=== PATIENT | male | born 1970 | race Two or more races ===

== ENCOUNTER → 2024-10-16 | Outpatient (CLI) | payer BC, SELFPAY ==
--- NOTE | 2024-10-16 10:50 | XR_ITS ---
Examination: Testicular sonography complete TECHNIQUE: Grayscale sonographic images testes, assessment arterial inflow venous outflow Doppler spectral analysis carful analysis Date and time: October 16, 2024 11:04 AM INDICATIONS: Scrotal pain 6 months to a year FINDINGS: Right testis 4.9 cm epididymis 16mm Scrotal wall 0.5 cm Arterial flow testicle. No testicular mass Left testis 5.5 cm epididymis 16mm 6 x 5 mm left epididymal cyst Arterial flow testicle. No testicular mass Scrotal wall 0.5 cm IMPRESSION: No testicular torsion or testicular mass Small benign left epididymal cyst Mild thickening of the scrotal wall bilaterally
[2024-10-16 11:04] LABS: Collection Type, Urine Clean Catch; Squamous Epithelial Cell,Urine 0 /hpf (0-5)
[2024-10-16 11:25] LABS: Basophils # (Auto) 0.1 Thou/mm3 (0.0-0.2); Basophils % (Auto) 1 % (0-2.5); Eosinophils # (Auto) 0.1 Thou/mm3 (0.0-0.5); Eosinophils % (Auto) 1 % (0-10); Hematocrit 42.6 % (41.0-53.0); Hemoglobin 15.6 g/dL (13.5-16.0); Immature Granulocytes % (Auto) 1 % (0-0); Immature Granulocytes Auto 0.04 Thou/mm3 (0.00-0.00); Lymphocytes # (Auto) 3.1 Thou/mm3 (1.0-4.8); Lymphocytes % (Auto) 39 % (10-50); Mean Corpuscular HGB Conc 36.6 g/dl (31.0-37.0); Mean Corpuscular Volume 79 fL (80-100); Monocytes # (Auto) 0.5 Thou/mm3 (0.0-0.8); Monocytes % (Auto) 6 % (0-12); Neutrophils # (Auto) 4.4 Thou/mm3 (1.8-7.7); Neutrophils % (Auto) 54 % (37-80); Nucleated Red Blood Cell % 0 /100 WBC (0); Platelet Count 296 Thou/mm3 (140-440); RDW Standard Deviation 37.7 fL (35.1-43.9); Red Blood Count 5.38 Miln/mm3 (4.50-5.90); White Blood Count 8.1 Thou/mm3 (3.8-10.6)
[2024-10-16 11:34] LABS: Glucose Estimated Average 143 mg/dL (80-131); Hemoglobin A1C 6.6 % Hgb (4.8-6.0)
[2024-10-16 11:39] LABS: Vitamin B12 530 pg/mL (211-911); Vitamin D 25 Hydroxy Total 8.5 ng/mL (7.3-40.2)
[2024-10-16 11:41] LABS: Alanine Aminotransferase 31 U/L (10-49); Albumin, Serum 4.7 gm/dL (3.5-5.0); Albumin/Globulin Ratio 1.9 (1.2-2.2); Alkaline Phosphatase 65 U/L (46-116); Anion Gap 8 (7-16); Aspartate Amino Transferase 30 U/L (0-34); BUN/Creatinine Ratio 11 Ratio (12-20); Bilirubin,Total 1.1 mg/dL (0.3-1.2); Blood Urea Nitrogen 12 mg/dL (9-23); Calcium 9.6 mg/dL (8.3-10.6); Calcium (Corrected) 9.6 mg/dL (8.5-10.1); Carbon Dioxide 31.7 mMol/L (20.0-31.0); Cardiac Risk Estimate 5.4 RATIO (4.0-6.7); Chloride 99 mMol/L (98-107); Cholesterol 177 mg/dL (132-200); Creatinine (Component) 1.1 mg/dL (0.6-1.3); Globulin 2.5 gm/dL (2.3-3.5); Glucose 167 mg/dL (74-106); HDL Cholesterol 33 mg/dL (40-60); LDL Cholesterol,Calculated 102 mg/dL (0-130); Osmolality,Calculated 281 (275-295); Potassium 3.9 mMol/L (3.4-5.1); Sodium 139 mMol/L (136-145); Thyroid Stimulating Hormone 1.69 uIU/mL (0.55-4.78); Total Protein 7.2 gm/dL (5.7-8.2); Triglycerides 208 mg/dL (30-150); Uric Acid 5.1 mg/dL (3.7-9.2); eGFR > 60 See Note
[2024-10-16 12:35] LABS: Bilirubin,Urine Negative (Negative); Blood,Urine Negative (Negative); Clarity,Urine Clear (Clear/Hazy); Color,Urine Colorless (Lt Yel-Yel); Glucose, Urine Trace (Negative); Ketones,Urine Negative (Negative); Leukocyte Esterase,Urine Negative (Negative); Nitrite,Urine Negative (Negative); Protein,Urine Negative (Neg - Trace); RBC,Urine 3 /hpf (0-3); Specific Gravity,Urine 1.007 (1.001-1.035); Urobilinogen,Urine Negative mg/dL (0.0-1.0); WBC,Urine 1 /hpf (0-5)
== END | disposition home or self-care (01) ==
LOC: CDIM 10:26
PROVIDERS: PCP Internal Medicine; Referring Provider Internal Medicine; Visit Provider Internal Medicine
DX: N50.3 Cyst of epididymis (principal); Z00.00 Encounter for general adult medical examination without abnormal findings
CPT/HCPCS: 36415; 76870; 80053; 80061; 81001; 82306; 82607; 83036; 84443; 84550; 85025

== ENCOUNTER 2024-12-11 15:54 | Observation (INO) | payer BC, SELFPAY ==
[2024-12-11 16:11] VITALS: BP 141/85; PULSE 112; RESP 20; TEMP 37.3; O2SAT 98; BMI 21.1
--- NOTE | 2024-12-11 16:59 | XR_ITS ---
Examination: CT abdomen and pelvis without contrast. Coronal 3-D reconstructions. Sagittal 2-D reconstructions. Date and time of exam:December 11, 2024 1819 hours INDICATIONS: Flank pain and abdominal pain diarrhea beginning 3 days ago CTDI: vol (mGy): 10. DLP: (mGycm): 709. Technique: Axial images of the abdomen have been obtained, 3 mm slice thickness Intravenous contrast material has not been administered. Low dose protocols were performed. One or more of the following dose reduction techniques were used; automated exposure control, adjustment of the mA and/or KV according to patient size, use of iterative reconstruction technique. Findings: Diffuse fatty infiltration throughout the liver, 8 mm right lobe liver cyst No gallstones Spleen not enlarged No pancreatic or adrenal mass No renal or ureteral calculi, no hydronephrosis Aorta normal size Appendix is not visualized, no pericecal inflammatory change There is diffuse mild wall thickening and inflammatory change involving the entire colon No bowel obstruction No bladder mass No prostatomegaly Grade 1 spondylolisthesis L5 on S1 IMPRESSION: Diffuse nonspecific colitis pattern, differential would include Crohn's disease, ulcerative colitis
--- NOTE | 2024-12-11 16:59 | PD.EDRME ---
Rapid Medical Screening Exam E Arrival date/time: 12/11/24 15:54 54-year-old male with no known medical history presents to the emergency room with a chief complaint diarrhea, flank pain, weakness and fatigue x 3 days. Patient was sent over by his primary care provider. I have greeted and performed a focused initial assessment of this patient. A comprehensive ED assessment and evaluation of the patient, analysis of all test results, and completion of the medical decision making process will be conducted by additional ED providers. Chief Complaint: Nausea/Vomiting/Diarrhea Time Seen by Provider: 12/11/24 16:11 Vital signs: Vital Signs Temperature 99.1 F 12/11/24 16:11 Pulse Rate 112 H 12/11/24 16:11 Respiratory Rate 20 12/11/24 16:11 Blood Pressure 141/85 H 12/11/24 16:11 Pulse Oximetry (%) 98 12/11/24 16:11 Oxygen Delivery Method Room Air 12/11/24 16:11 Vital signs reviewed by provider: Yes
[2024-12-11 17:14] LABS: Basophils # (Auto) 0.1 Thou/mm3 (0.0-0.2); Basophils % (Auto) 0 % (0-2.5); Eosinophils # (Auto) 0.0 Thou/mm3 (0.0-0.5); Eosinophils % (Auto) 0 % (0-10); Hematocrit 47.5 % (41.0-53.0); Hemoglobin 17.4 g/dL (13.5-16.0); Immature Granulocytes Auto 0.07 Thou/mm3 (0.00-0.00); Lymphocytes # (Auto) 1.7 Thou/mm3 (1.0-4.8); Lymphocytes % (Auto) 10 % (10-50); Mean Corpuscular HGB Conc 36.6 g/dl (31.0-37.0); Mean Corpuscular Hemoglobin 29.2 pg (25.0-35.0); Mean Corpuscular Volume 80 fL (80-100); Monocytes # (Auto) 1.2 Thou/mm3 (0.0-0.8); Monocytes % (Auto) 7 % (0-12); Neutrophils # (Auto) 13.6 Thou/mm3 (1.8-7.7); Neutrophils % (Auto) 82 % (37-80); Nucleated Red Blood Cell # 0.00 Thou/mm3 (0.00-0.00); Nucleated Red Blood Cell % 0 /100 WBC (0); Platelet Count 284 Thou/mm3 (140-440); RDW Standard Deviation 35.6 fL (35.1-43.9); Red Blood Count 5.95 Miln/mm3 (4.50-5.90); White Blood Count 16.7 Thou/mm3 (3.8-10.6)
[2024-12-11 17:40] LABS: Alanine Aminotransferase 16 U/L (10-49); Albumin, Serum 5.0 gm/dL (3.5-5.0); Albumin/Globulin Ratio 1.6 (1.2-2.2); Alkaline Phosphatase 72 U/L (46-116); Anion Gap 12 (7-16); Aspartate Amino Transferase 24 U/L (0-34); BUN/Creatinine Ratio 8 Ratio (12-20); Bilirubin,Total 1.7 mg/dL (0.3-1.2); Blood Urea Nitrogen 9 mg/dL (9-23); Calcium 9.7 mg/dL (8.3-10.6); Calcium (Corrected) 9.7 mg/dL (8.5-10.1); Carbon Dioxide 28.7 mMol/L (20.0-31.0); Chloride 95 mMol/L (98-107); Creatinine (Component) 1.2 mg/dL (0.6-1.3); Estimated Creatinine Clearance 66.4 mL/min (>60); Globulin 3.2 gm/dL (2.3-3.5); Glucose 208 mg/dL (74-106); Lipase 30 U/L (12-53); Osmolality,Calculated 276 (275-295); Potassium 3.5 mMol/L (3.4-5.1); Sodium 136 mMol/L (136-145); Total Protein 8.2 gm/dL (5.7-8.2); eGFR > 60 See Note
[2024-12-11 19:50] LABS: Collection Type, Urine Clean Catch; Squamous Epithelial Cell,Urine 0 /hpf (0-5)
[2024-12-11 20:00] LABS: Bilirubin,Urine Negative (Negative); Blood,Urine Negative (Negative); Clarity,Urine Clear (Clear/Hazy); Color,Urine Yellow (Lt Yel-Yel); Culture Indicated,Urine Not Indicated; Glucose, Urine 2+ (Negative); Hyaline Casts,Urine 1 /hpf (0-1); Ketones,Urine 1+ (Negative); Leukocyte Esterase,Urine Negative (Negative); Nitrite,Urine Negative (Negative); PH,Urine 6.0 (5.0-7.0); Protein,Urine 1+ (Neg - Trace); RBC,Urine 1 /hpf (0-3); Specific Gravity,Urine 1.019 (1.001-1.035); Urobilinogen,Urine Negative mg/dL (0.0-1.0); WBC,Urine 6 /hpf (0-5)
--- NOTE | 2024-12-11 20:43 | PD.EDNV ---
Nausea/Vomit./Diarrhea-RME/HPI General Chief complaint: Nausea/Vomiting/Diarrhea Stated complaint: Diarrhea X 3 days, abd. pain, dry mouth Time Seen by Provider: 12/11/24 16:11 Arrival date/time: 12/11/24 15:54 RME / HPI RME / HPI Narrative: 12/11/24 15:54 54-year-old male with no known medical history presents to the emergency room with a chief complaint diarrhea, flank pain, weakness and fatigue x 3 days. Patient was sent over by his primary care provider. I have greeted and performed a focused initial assessment of this patient. A comprehensive ED assessment and evaluation of the patient, analysis of all test results, and completion of the medical decision making process will be conducted by additional ED providers. Dr. Dillon?s Main ED Evaluation: 54yo male presenting with ongoing foul, watery diarrhea 5-10 episodes daily for the last 3 days. He has associated nausea, but no emesis. He does have generalized abdominal pain described as cramping and notes a low-grade fever. Denies recent travel, restaurant-food exposure, or sick contacts. PMH includes glucose intolerance. PSH: no previous abdominal surgeries. Allergies to penicillin. Related Data Allergies Allergy/AdvReac Type Severity Reaction Status Date / Time Penicillins Allergy Unknown UNKNOWN Verified 12/11/24 15:58 Review of Systems Review of Systems Systems Reviewed: All systems reviewed, normal except as documented Past Medical History Social History SMOKING STATUS: Never smoker ED Exam Narrative Physical exam: GENERAL APPEARANCE: alert and oriented x 4, well-developed, well-nourished, nontoxic, complains of generalized abdominal pain, no acute distress VITALS: All vitals were reviewed and the pulse ox is 98% on room air, which is normal according to my interpretation. HEENT: Normocephalic, atraumatic; pupils equal, round, reactive to light; EOMI; mucous membranes pink, moist; oropharynx clear NECK: Supple LUNGS: CTABL; no wheezes, no rales, no rhonchi HEART: Mildly tachycardic, regular rhythm; normal S1, S2; no murmurs ABDOMEN: non distended; hypoactive BS; soft, generalized diffuse tenderness, no gross peritoneal findings BACK: no CVA tenderness EXTREMITIES: atraumatic; no edema NEUROLOGIC: awake; alert and oriented x4; cranial nerves II-XII grossly intact; no focal sensory or motor deficits PSYCHIATRIC: appropriate mood and affect SKIN: warm, dry, normal color; no rashes Course Quality Measures none Orders Category Date Time Status Bedside COVID-19 Antigen Test NOW Care 12/11/24 16:18 Active Bedside Influenza A&B Antigen Test NOW Care 12/11/24 16:[address] abdomen pelvis wo con Stat Exams 12/11/24 16:59 Completed CBC Stat Lab 12/11/24 16:58 Completed CMP [Comprehensive Metabolic Panel] Stat Lab 12/11/24 16:58 Completed Lipase Stat Lab 12/11/24 16:58 Completed UA, C/S IF [Urinalysis, C/S if Indicated] Stat Lab 12/11/24 19:45 Completed Levofloxacin/D5w 500 mg Ivpb [Levaquin Ivpb] Med 12/11/24 21:16 Active 500 mg in 100 ml IV X1 Midazolam Inj [Versed Inj] Med 12/11/24 21:20 Discontinued 2 mg IVP X1 ONE Morphine Inj Med 12/11/24 21:16 Discontinued 4 mg IVP X1 ONE metroNIDAZOLE/NS 500 MG IVPB [Flagyl 500 mg IV] Med 12/11/24 21:19 Active 500 mg in 100 ml IV X1 Vital Signs Vital signs: Vital Signs Temperature 99.1 F 12/11/24 16:11 Pulse Rate 112 H 12/11/24 16:11 Respiratory Rate 20 12/11/24 16:11 Blood Pressure 141/85 H 12/11/24 16:11 Pulse Oximetry (%) 98 12/11/24 16:11 Oxygen Delivery Method Room Air 12/11/24 16:11 Nausea/Vomiting/Diarrhea MDM Narrative MDM Narrative:: Scribe Attestation: 12/11/24 - Kanwal Resendez am scribing for and in the presence of Dr. Dillon. 54yo male presenting with ongoing foul, watery diarrhea 5-10 episodes daily for the last 3 days. He has associated nausea, but no emesis. He does have generalized abdominal pain described as cramping and notes a low-grade fever. Please see PE findings. Lab markers remarkable for elevated WBC count 16.37, hemoconcentration with Hgb 17.6, normal platelets, and left shift without bandemia. Chemistries show mildly elevated blood sugar of 208 without ketosis, normal lipase. UA shows evidence of concentration. Patient placed on quality assurance monitor chassis and IV was established. Patient hydrated to correct volume deficit and given IV narcotic analgesics/antiemetics with [id number] relief. Patient referred for CT abdomen pelvis, which demonstrated mild diffuse colitis. Empiric antibiotics initiated. Patient remained hemodynamically stable without signs of sepsis. Hospitalist consulted and agrees to admit the patient for bowel rest, IV antibiotic therapy, and pain control. Dx: acute colitis. Patient data External records reviewed:: [facility] previous records (Per chart review, patient has no previous ED visits or admissions to this facility.) Clinical information provided by:: patient Social determinants that could affect healthcare access:: none Patient has the following chronic illnesses:: none How is presenting disease/condition affected by chronic disease/condition?: no chronic disease Evaluation data The following diagnostics were reviewed and interpreted by me:: lab results and radiology exam(s) Lab and/or radiology exams considered but not ordered:: none Interpretation Summary: [facility] Report Signed Patient: LIAM COLVIN. Record#: [id number] Birthdate: 1970 Age/Sex: 54 / M Location: [facility] Attending Dr: Ordering Physician: Nicolas Nettles Date of Service: 12/11/24 Procedure(s): CT abdomen pelvis wo con Accession Number(s): [id number] cc: Nicolas Nettles; Jonathan Castro MD; Sean Aguirre MD~ Examination: CT abdomen and pelvis without contrast. Coronal 3-D reconstructions. Sagittal 2-D reconstructions. Date and time of exam:December 11, 2024 1819 hours INDICATIONS: Flank pain and abdominal pain diarrhea beginning 3 days ago CTDI: vol (mGy): 10. DLP: (mGycm): 709. Technique: Axial images of the abdomen have been obtained, 3 mm slice thickness Intravenous contrast material has not been administered. Low dose protocols were performed. One or more of the following dose reduction techniques were used; automated exposure control, adjustment of the mA and/or KV according to patient size, use of iterative reconstruction technique. Findings: Diffuse fatty infiltration throughout the liver, 8 mm right lobe liver cyst No gallstones Spleen not enlarged No pancreatic or adrenal mass No renal or ureteral calculi, no hydronephrosis Aorta normal size Appendix is not visualized, no pericecal inflammatory change There is diffuse mild wall thickening and inflammatory change involving the entire colon No bowel obstruction No bladder mass No prostatomegaly Grade 1 spondylolisthesis L5 on S1 IMPRESSION: Diffuse nonspecific colitis pattern, differential would include Crohn's disease, ulcerative colitis Dictated By: Jonathan Castro MD Signed By: <Electronically signed by Jonathan Castro MD in [place]> 12/11/24 1849 Medications / Prescriptions Medications / Prescriptions considered but not ordered:: none Medication administrations:: Medication Administration History Metronidazole (Flagyl 500 Mg Iv) 500 mg in 100 mls @ 100 mls/hr IV X1 ONE Stop: 12/11/24 22:18 Levofloxacin/Dextrose (Levaquin Ivpb) 500 mg in 100 mls @ 100 mls/hr IV X1 ONE Stop: 12/11/24 22:15 Discontinued Medications Midazolam HCl (Midazolam Inj 1 Mg/Ml Vial 2 Ml) 2 mg IVP X1 ONE Stop: 12/11/24 21:21 Morphine Sulfate (Morphine Sulf Inj 10 Mg/Ml Vial) 4 mg IVP X1 ONE Stop: 12/11/24 21:17 see above Consultations Consultation(s) initiated? (list below): Yes Consultation #1 (Physician, Specialty, Details): Discussed case with Dr. Frank, the resident physician, attending Dr. Shaffer from Hospitalist service regarding admission. Discussed patients ED course, exam findings, labs, and radiology results. The Hospitalist agrees to accept the patient for admission. Time: 21:40 Diagnosis Nausea Differential Diagnosis: gastroenteritis, dehydration and other (colitis, dehydration, electrolyte abnormality) Most likely diagnosis given after review of the tests above:: colitis Admission Indicated Admission indicated?: indicated Admission Request Was there a request for admission?: Yes Admission Attestation Admission request attestation: Discussed case with [] from Hospitalist service regarding admission. Discussed patients ED course, exam findings, labs, and radiology results. The Hospitalist [agrees,declines] to accept the patient for admission. Disposition Plan Disposition Plan: Admit Discharge Plan Plan Patient Disposition: Admit Acute Care w/in Hospital Prescriptions/Referrals Referrals: Sean Aguirre MD [Primary Care Provider] - In 1 week Problem List Clinical Impression: Acute colitis Patient/Caregiver Discharge Instructions Print Language: Romansh Stand Alone Forms: [facility] Award Info., Patient Portal Info Letter
[2024-12-11 20:56] VITALS: BP 136/89; PULSE 94; RESP 19; TEMP 36.8; O2SAT 96
[2024-12-11] MEDS: MORPHINE SULF INJ 10 MG/ML VIAL 4 MG IVP (21:56)
[2024-12-11] MEDS: LEVOFLOXACIN/D5W 500 MG IVPB 500 MG/100 ML BAG 100 MG IV (21:56)
--- NOTE | 2024-12-11 22:18 | ESHP_ITS ---
<Statement entered by Apollo Gates MD - 12/12/24 19:03> I have discussed and was present for the essential components of the history, physical examination, diagnosis, and treatment plan with the resident. I agree with the patient's care as documented by the resident and amended herein by me. Apollo Gates MD FACP. Documentation for date of: 12/11/24 HPI History of Present Illness Chief complaint: Diarrhea History of present illness: 54 y/o M without significant PMHx presenting with chief complaint of diarrhea with 5?10 episodes per day for the past 3 days. Patient reports initially thought it may be related to food poisoning, because it began shortly after eating a meal. However symptoms did not improve. Patient also notes associated nausea, decreased appetite with poor p.o. intake, abdominal pain, fever, chills. Bowel movements are watery, nonbloody. Patient also endorses mild shortness of breath related to abdominal pain with inspiration. Patient denies chest pain, vomiting. ED COURSE: Labs significant for: WBC 16.7, lipase negative, T. bili 1.7. Imaging significant for: CT A/P showing diffuse nonspecific colitis. Patient received Flagyl, Levaquin, Versed, morphine in the ED. PMH: Prediabetes PSH: Appendectomy as a small child. SH: Denies tobacco or illicit drugs. Reports social drinking, never binge drinks. Allergies:?Penicillin Medications: None Review of Systems Review of Systems Systems Reviewed: All systems reviewed, normal except as documented Past Medical History Past Medical History Comments PMH COMMENT: PMH: Prediabetes PSH: Appendectomy as a small child. SH: Denies tobacco or illicit drugs. Reports social drinking, never binge drinks. Allergies:?Penicillin Medications: None Exam Vital Signs Temp Pulse Resp BP Pulse Ox O2 Del Method 98.3 F 94 19 136/89 H 96 Room Air 12/11/24 20:56 12/11/24 20:56 12/11/24 20:56 12/11/24 20:56 12/11/24 20:56 12/11/24 20:56 Narrative Exam PE: Gen: Well-developed and well-nourished. HEENT: NCAT, PERRLA, EOMI, MMM, anicteric conjunctivae. CVS: normal S1 and S2. RRR. No M/R/G. Resp: CTA B/L. No rhonchi, rales, crackles or wheezing. Abd: soft, non-distended. BS+ in all 4 quadrants. Midepigastric and periumbilical tenderness. MSK: Good ROM in BUE & BLE. No edema or rash. Neuro: CN II-XII grossly intact. Strength 5/5 in BUE & BLE. Alert and oriented x3. Psych: appropriate mood and affect. Results: Labs 12/12/24 05:54 12/12/24 05:54 Labs: Short CBC 12/11/24 Range/Units 16:58 WBC 16.7 H (3.8-10.6) Thou/mm3 Hgb 17.4 H (13.5-16.0) g/dL Hct 47.5 (41.0-53.0) % Plt Count 284 (140-440) Thou/mm3 BMP 12/11/24 16:58 Sodium 136 Potassium 3.5 Chloride 95 L Carbon Dioxide 28.7 BUN 9 Creatinine 1.2 Glucose 208 H Calcium 9.7 Liver Function 12/11/24 Range/Units 16:58 Total Bilirubin 1.7 H (0.3-1.2) mg/dL AST 24 (0-34) U/L ALT 16 (10-49) U/L Alkaline Phosphatase 72 (46-116) U/L Albumin 5.0 (3.5-5.0) gm/dL Urine 12/11/24 Range/Units 19:45 Urine Color Yellow (Lt Yel-Yel) Urine Clarity Clear (Clear/Hazy) Urine pH 6.0 (5.0-7.0) Ur Specific [place] 1.019 (1.001-1.035) Urine Protein 1+ A (Neg - Trace) Urine Glucose (UA) 2+ A (Negative) Quality Measures Quality Measures VTE prophylaxis Medications Home Medications and Allergies Home Medications ?Medication ?Instructions ?Recorded ?Confirmed ?Type No Known Home Medications 12/12/2412/01 History Allergies Allergy/AdvReac Type Severity Reaction Status Date / Time Penicillins Allergy Unknown UNKNOWN Verified 12/11/24 15:58 Visit Medications Acetaminophen (Acetaminophen 325 Mg Tablet) 650 mg PO Q6H PRN PRN Reason: Fever >100.4 or pain Stop: 01/10/25 22:05 Hydrocodone Bitart/Acetaminophen (Hydrocodone/Apap 5/325 Tablet) 1 tab PO Q4HR PRN PRN Reason: PAIN SCALE 4-10(Mod-Sev Stop: 12/16/24 22:05 Enoxaparin Sodium (Enoxaparin Sod Inj 40 Mg/0.4 Ml Syringe) 40 mg SC QDAY [facility] Stop: 12/26/24 08:59 Lactated Ringer's (Lactated Ringers) 1,000 mls @ 60 mls/hr IV .[id number] [facility] Stop: 12/13/24 07:34 Levofloxacin/Dextrose (Levaquin Ivpb) 750 mg in 150 mls @ 100 mls/hr IV QDAY [facility] Stop: 12/19/24 08:59 Metronidazole (Flagyl 500 Mg Iv) 500 mg in 100 mls @ 200 mls/hr IV Q8HR [facility] Stop: 12/18/24 22:12 Ondansetron HCl (Ondansetron Inj 2 Mg/Ml Inj 2 Ml) 4 mg IVP Q6H PRN; Protocol PRN Reason: NAUSEA OR VOMITING Stop: 01/10/25 22:05 Discontinued Medications Metronidazole (Flagyl 500 Mg Iv) 500 mg in 100 mls @ 100 mls/hr IV X1 ONE Stop: 12/11/24 22:18 Levofloxacin/Dextrose (Levaquin Ivpb) 500 mg in 100 mls @ 100 mls/hr IV X1 ONE Stop: 12/11/24 22:15 Last Admin: 12/11/24 21:56 Dose: 100 mls/hr Midazolam HCl (Midazolam Inj 1 Mg/Ml Vial 2 Ml) 2 mg IVP X1 ONE Stop: 12/11/24 21:21 Morphine Sulfate (Morphine Sulf Inj 10 Mg/Ml Vial) 4 mg IVP X1 ONE Stop: 12/11/24 21:17 Last Admin: 12/11/24 21:56 Dose: 4 mg Assessment & Plan Plan 54 y/o M without significant PMHx presenting with chief complaint of diarrhea with 5?10 episodes per day for the past 3 days, admitted as observation for infectious diarrhea #Acute diarrhea, probable infection Patient complains of 3 days of diarrhea, 5?10 bowel movements per day, watery nonbloody. Patient also noted fever and chills, abdominal tenderness during this time. Presentation leukocytosis 16.7. Periumbilical and epigastric tenderness noted on exam, lipase negative. CT A/P showing diffuse nonspecific colitis. Patient received Flagyl, Levaquin, Versed, morphine in the ED. Sofa score 1 - Flagyl 500 mg IV every 8 hours (started 12/11) - Levaquin 750 mg IV daily (started 12/11) - Clear liquid diet - IVF: LR at 60 mL/h x 2 L - Stool culture, Giardia, norovirus pending - Stool calprotectin pending DVT prophylaxis: Lovenox GI prophylaxis: None Diet: Clear liquid diet Lines: Peripheral IV Code status: Full code Plan of care discussed with attending Dr. Gates. Emmanuel Frank MD PGY?2
[2024-12-11] MEDS: metroNIDAZOLE/NS 500 MG IVPB 500 MG/100 ML BAG 100 MG IV (23:14)
[2024-12-11] MEDS: RINGERS LACTATED 1000 ML 1,000 ML 60 ML IV (23:14)
[2024-12-12 00:01] VITALS: BMI 35.4
--- NOTE | 2024-12-12 00:24 | PC.NURSE ---
received pt from ED at 00:10. pt in room 365 and is aaox4.
[2024-12-12 04:00] VITALS: BP 140/84; PULSE 71; RESP 18; TEMP 36.4; O2SAT 97
[2024-12-12] MEDS: metroNIDAZOLE/NS 500 MG IVPB 500 MG/100 ML BAG 200 MG IV ×3 (05:24→21:47)
[2024-12-12 06:49] LABS: INR 1.1 (0.9-1.3); Partial Thromboplastin Time 28.5 Seconds (22.0-36.0); Prothrombin Time 11.8 Seconds (9.0-12.2)
[2024-12-12 06:51] LABS: Basophils # (Auto) 0.0 Thou/mm3 (0.0-0.2); Basophils % (Auto) 0 % (0-2.5); Eosinophils # (Auto) 0.0 Thou/mm3 (0.0-0.5); Eosinophils % (Auto) 0 % (0-10); Hematocrit 42.1 % (41.0-53.0); Hemoglobin 15.2 g/dL (13.5-16.0); Immature Granulocytes Auto 0.04 Thou/mm3 (0.00-0.00); Lymphocytes # (Auto) 1.4 Thou/mm3 (1.0-4.8); Lymphocytes % (Auto) 15 % (10-50); Mean Corpuscular HGB Conc 36.1 g/dl (31.0-37.0); Mean Corpuscular Hemoglobin 29.1 pg (25.0-35.0); Mean Corpuscular Volume 81 fL (80-100); Monocytes # (Auto) 0.9 Thou/mm3 (0.0-0.8); Monocytes % (Auto) 10 % (0-12); Neutrophils # (Auto) 6.8 Thou/mm3 (1.8-7.7); Neutrophils % (Auto) 75 % (37-80); Nucleated Red Blood Cell # 0.00 Thou/mm3 (0.00-0.00); Nucleated Red Blood Cell % 0 /100 WBC (0); Platelet Count 200 Thou/mm3 (140-440); RDW Standard Deviation 36.4 fL (35.1-43.9); Red Blood Count 5.22 Miln/mm3 (4.50-5.90); White Blood Count 9.1 Thou/mm3 (3.8-10.6)
[2024-12-12 07:02] LABS: Anion Gap 11 (7-16); BUN/Creatinine Ratio 8 Ratio (12-20); Blood Urea Nitrogen 8 mg/dL (9-23); Calcium 8.9 mg/dL (8.3-10.6); Carbon Dioxide 26.3 mMol/L (20.0-31.0); Cardiac Risk Estimate 4.6 RATIO (4.0-6.7); Chloride 97 mMol/L (98-107); Cholesterol 175 mg/dL (132-200); Creatinine (Component) 1.0 mg/dL (0.6-1.3); Estimated Creatinine Clearance 105.9 mL/min (>60); Glucose 158 mg/dL (74-106); HDL Cholesterol 38 mg/dL (40-60); LDL Cholesterol,Calculated 108 mg/dL (0-130); Magnesium 1.4 mg/dL (1.6-2.6); Osmolality,Calculated 269 (275-295); Phosphorous 2.7 mg/dL (2.4-5.1); Potassium 3.3 mMol/L (3.4-5.1); Sodium 134 mMol/L (136-145); Thyroid Stimulating Hormone 4.73 uIU/mL (0.55-4.78); Triglycerides 145 mg/dL (30-150); eGFR > 60 See Note
[2024-12-12 08:00] VITALS: BP 143/87; PULSE 61; RESP 18; TEMP 36.3; O2SAT 96
[2024-12-12] MEDS: ENOXAPARIN SOD INJ 40 MG/0.4 ML SYRINGE SC (09:36)
--- NOTE | 2024-12-12 09:45 | PD.RESPRO ---
Documentation for date of: 12/12/24 Subjective Subjective Interval history: Chief complaint: Diarrhea History of present illness: 54 y/o M with PMH of pre-diabetes presenting with a chief complaint of diarrhea with 5?10 episodes per day for the past 3 days. Patient reports that he initially thought it may have been related to food poisoning, because it began shortly after eating a meal ([employer] and cupcakes). However, symptoms did not improve. Patient also noted associated nausea, decreased appetite with poor PO intake, abdominal pain, fever, and chills. Bowel movements are watery and without blood. Patient also endorsed mild shortness of breath related to abdominal pain with inspiration. Patient denies chest pain, vomiting. He also denies any recent travel history or sick contacts. In the ED, vitals showed: BP 141/85 HR 112 RR 20 Temp 99.1 SpO2 98% on room air ED COURSE: Labs significant for: WBC 16.7, lipase negative, T. bili 1.7. Imaging significant for: CT A/P showing diffuse nonspecific colitis. Patient received Flagyl, Levaquin, Versed, morphine in the ED. PMH: Pre-diabetes PSH: Appendectomy as a small child. SH: Denies tobacco or illicit drugs. Reports social drinking, never binge drinks. Allergies:?Penicillin Medications: None Interval History 12/12/2024: No overnight events. Patient seen and examined at bedside; they report feeling better today with less episodes of diarrhea (only 2-3 as opposed to 5-10 episodes) and less abdominal pain. No fever. also thinks patient's abdomen seems less distended than it did yesterday. Labs today show significant WBC downtrend from 16.7 to 9.1, Na 134, K 3.3, blood glucose 148, and low Mag 1.4. Stool calprotectin, Campylobacter PCR, E.coli Shiga Tox PCR, Giardia antigen, Salmonella PCR, Shigella PCR, and Norovirus antigen have all been ordered but not resulted. Patient is currently on IV Flagyl and IV Levaquin for his diarrhea of suspected infectious etiology. He may be discharged tomorrow if he continues to improve and sent home with PO variants of his antibiotics. Exam Vital Signs Temp Pulse Resp BP Pulse Ox O2 Del Method 97.3 F 61 18 143/87 H 96 Room Air 12/12/24 08:00 12/12/24 08:00 12/12/24 08:00 12/12/24 08:00 12/12/24 08:00 12/12/24 08:00 Narrative Exam Physical Exam: General: A/O x3, no acute distress, well-nourished, well-developed. Skin: Warm, dry, intact, no obvious rash. Head: Normocephalic, atraumatic. Eyes: PERRL, EOMI. Anicteric, vision grossly intact. Ears: No ear pain, no ear discharge, Hearing grossly intact. Nose: No nasal discharge. Mouth/Throat: Oral mucosa moist. No obvious lesions in oropharynx. Neck: Neck supple, non-tender, no cervical lymphadenopathy. Cardiovascular: Regular rate and rhythm, no murmur, no JVD or carotid bruits. +S1/S2. Respiratory: Bilateral lungs are clear to auscultation and percussion, respirations unlabored, no crackles, no wheezing. No accessory muscle use. Gastrointestinal: Midepigastric and periumbilical tenderness (mild and improving). Soft, non-distended, no palpable masses. No guarding or rebound tenderness. Peristalsis present. Extremities: Symmetrical, no significant deformities. No edema, no cyanosis, no clubbing. 2+ radial pulse bilaterally, 2+ posterior tibial pulse bilaterally. Neuro: No focal deficits observed. Conversant, moving all extremities. No overt cerebellar signs/incoordination. Psychiatric: Cooperative, appropriate affect. Objective Labs 12/12/24 05:54 12/12/24 05:54 Labs: Laboratory Results - last 24 hr 12/11/24 12/11/24 12/12/24 16:58 19:45 05:54 WBC 16.7 H 9.1 D RBC 5.95 H 5.22 Hgb 17.4 H 15.2 D Hct 47.5 42.1 MCV 80 81 MCH 29.2 29.1 MCHC 36.6 36.1 RDW Std Deviation 35.6 36.4 Plt Count 284 200 D Neut % (Auto) 82 H 75 Lymph % (Auto) 10 15 [place] % (Auto) 7 10 Eos % (Auto) 0 0 Baso % (Auto) 0 0 Neut # (Auto) 13.6 H 6.8 Lymph # (Auto) 1.7 1.4 [place] # (Auto) 1.2 H 0.9 H Eos # (Auto) 0.0 0.0 Baso # (Auto) 0.1 0.0 Immature Gran # (Auto) 0.07 H 0.04 H Absolute Nucleated RBC 0.00 0.00 Immature Gran % 0 0 Nucleated RBC % 0 0 PT 11.8 INR 1.1 APTT 28.5 Sodium 136 134 L Potassium 3.5 3.3 L Chloride 95 L 97 L Carbon Dioxide 28.7 26.3 Anion Gap 12 11 BUN 9 8 L Creatinine 1.2 1.0 Estim Creat Clear Calc 66.4 105.9 eGFR > 60 > 60 BUN/Creatinine Ratio 8 L 8 L Glucose 208 H 158 H D Calculated Osmolality 276 269 L Calcium 9.7 8.9 Corrected Calcium 9.7 Phosphorus 2.7 Magnesium 1.4 L Total Bilirubin 1.7 H AST 24 ALT 16 Alkaline Phosphatase 72 Total Protein 8.2 Albumin 5.0 Globulin 3.2 Albumin/Globulin Ratio 1.6 Triglycerides 145 Cholesterol 175 LDL Cholesterol, Calc 108 HDL Cholesterol 38 L Cholesterol/HDL Ratio 4.6 Lipase 30 TSH 4.73 Ur Collection Type Clean Catch Urine Color Yellow Urine Clarity Clear Urine pH 6.0 Ur Specific [place] 1.019 Urine Protein 1+ A Urine Glucose (UA) 2+ A Urine Ketones 1+ A Urine Blood Negative Urine Nitrite Negative Urine Bilirubin Negative Urine Urobilinogen (Auto) Negative Ur Leukocyte Esterase Negative Urine RBC 1 Urine WBC 6 H Ur Squamous Epith Cells 0 Urine Bacteria None Hyaline Casts 1 Ur Culture Indicated? Not Indicated Quality Measures Quality Measures VTE prophylaxis Assessment & Plan Assessment Current Active Medications: Generic Name Dose Route Start Last Admin Trade Name Jana PRN Reason Stop Dose Admin Acetaminophen 650 mg 12/11/24 22:06 Acetaminophen 325 Mg Tablet PO 01/10/25 22:05 Q6H PRN Fever >100.4 or pain Hydrocodone Bitart/Acetaminophen 1 tab 12/11/24 22:06 Hydrocodone/Apap 5/325 Tablet PO 12/16/24 22:05 Q4HR PRN PAIN SCALE 4-10(Mod-Sev Enoxaparin Sodium 40 mg 12/12/24 09:00 12/12/24 09:36 Enoxaparin Sod Inj 40 Mg/0.4 Ml Syringe SC 12/26/24 08:59 40 mg QDAY JANET Administration Lactated Ringer's 1,000 mls @ 60 mls/hr 08/11/25 22:15 12/11/24 23:14 Lactated Ringers IV 12/13/24 07:34 60 mls/hr .[id number] JANET Administration Levofloxacin/Dextrose 750 mg in 150 mls @ 100 mls/hr 12/12/24 21:00 Levaquin Ivpb IV 12/19/24 20:59 HS JANET Metronidazole 500 mg in 100 mls @ 200 mls/hr 12/12/24 06:00 12/12/24 05:24 Flagyl 500 Mg Iv IV 12/19/24 05:59 200 mls/hr Q8HR JANET Administration Ondansetron HCl 4 mg 12/11/24 22:06 Ondansetron Inj 2 Mg/Ml Inj 2 Ml IVP 01/10/25 22:05 Q6H PRN NAUSEA OR VOMITING Protocol Plan 54 y/o M with PMH of pre-diabetes presenting with chief complaint of diarrhea with 5?10 episodes per day for the past 3 days, admitted as observation for infectious diarrhea. Today, patient reports feeling better with much less abdominal pain and having less episodes of diarrhea. WBC also downtrended today to 9.1 from 16.7. #Acute diarrhea, non-bloody, likely infectious etiology Patient complains of 3 days of diarrhea, 5?10 bowel movements per day, watery nonbloody. Patient also noted fever and chills, abdominal tenderness during this time. Presentation leukocytosis 16.7. Periumbilical and epigastric tenderness noted on exam, lipase negative. CT A/P showing diffuse nonspecific colitis. Patient received Flagyl, Levaquin, Versed, morphine in the ED. Sofa score 1 Diagnostic Inquiry -Stool culture, Giardia, norovirus pending -Stool calprotectin pending -Stool Campylobacter, E. coli Shiga Tox, Salmonella, Shigella PCR pending Treatment Plan -Flagyl 500 mg IV every 8 hours (started 12/11) -Levaquin 750 mg IV daily (started 12/11) -Clear liquid diet -IVF: LR at 60 mL/h x 2 L #Hypomagnesemia Treatment Plan -IV magnesium sulfate 4 mg x1 -Monitor electrolytes and replete Mg<2 DVT prophylaxis: Lovenox GI prophylaxis: None Diet: Clear liquid diet Lines: Peripheral IV Code status: Full code Plan of care discussed with attending, Dr. Aguirre. Humphrey Oneil, DO PGY-1 Attending Provider Attestation/Addendum Patient seen and examined with resident physician Dr. Oneil. Note reviewed, agree with findings and recommendations. Patient admitted with a significant abdominal pain, Nonbloody watery stools. Most likely related to infectious diarrhea. Responded very well to IV fluids, Flagyl, Levaquin. at bedside. Replace electrolytes. If clinically stable will plan for discharge tomorrow on p.o. Cipro.
[2024-12-12] MEDS: Magnesium Sulfate 4 GM Ivpb 4 GM/50 ML BAG IV (11:31)
[2024-12-12 11:32] LABS: Campylobacter PCR Positive (Negative); Salmonella Species PCR Negative (Negative); Shiga Toxin PCR Negative (Negative); Shigella Species PCR Negative (Negative)
[2024-12-12 12:00] VITALS: BP 137/85; PULSE 72; RESP 18; TEMP 36.2; O2SAT 95
--- NOTE | 2024-12-12 14:33 | PC.SS ---
Patient is alert/oriented. Patient was able to verify demographics. Patient states he resides with his . Patient is independent with ADL's. Patient was admitted for diarrhea. Patient is on a clear liquid diet. Discharge plan is to return home. Patient states he drives himself to appointments. He is employed. PCP: Dr. Aguirre. Pharmacy: [facility]/[place]. Discharge plan is to return home. No further d/c needs. Alt medical decision maker: Deanna, , d/c plan: home transportation: family
[2024-12-12] MEDS: RINGERS LACTATED 1000 ML 1,000 ML 60 ML IV (14:39)
[2024-12-12 16:00] VITALS: BP 145/84; PULSE 68; RESP 18; TEMP 36.5; O2SAT 95
[2024-12-12 20:00] VITALS: BP 131/80; PULSE 73; RESP 18; TEMP 36.1; O2SAT 94
[2024-12-12] MEDS: LEVOFLOXACIN/D5W 750MG IVPB 750 MG/150 ML BAG 100 MG IV (20:10)
[2024-12-13] VITALS: BP 125/79; PULSE 69; RESP 18; TEMP 36.1; O2SAT 95
[2024-12-13 04:00] VITALS: BP 142/86; PULSE 90; RESP 18; TEMP 36.4; O2SAT 94
[2024-12-13] MEDS: metroNIDAZOLE/NS 500 MG IVPB 500 MG/100 ML BAG 200 MG IV (05:06)
[2024-12-13 06:36] LABS: Basophils # (Auto) 0.0 Thou/mm3 (0.0-0.2); Basophils % (Auto) 0 % (0-2.5); Eosinophils # (Auto) 0.1 Thou/mm3 (0.0-0.5); Eosinophils % (Auto) 1 % (0-10); Hematocrit 43.4 % (41.0-53.0); Hemoglobin 15.5 g/dL (13.5-16.0); Immature Granulocytes Auto 0.02 Thou/mm3 (0.00-0.00); Lymphocytes # (Auto) 1.9 Thou/mm3 (1.0-4.8); Lymphocytes % (Auto) 25 % (10-50); Mean Corpuscular HGB Conc 35.7 g/dl (31.0-37.0); Mean Corpuscular Hemoglobin 28.8 pg (25.0-35.0); Mean Corpuscular Volume 81 fL (80-100); Monocytes # (Auto) 0.9 Thou/mm3 (0.0-0.8); Monocytes % (Auto) 12 % (0-12); Neutrophils # (Auto) 4.7 Thou/mm3 (1.8-7.7); Neutrophils % (Auto) 62 % (37-80); Nucleated Red Blood Cell # 0.00 Thou/mm3 (0.00-0.00); Nucleated Red Blood Cell % 0 /100 WBC (0); Platelet Count 246 Thou/mm3 (140-440); RDW Standard Deviation 36.7 fL (35.1-43.9); Red Blood Count 5.38 Miln/mm3 (4.50-5.90); White Blood Count 7.6 Thou/mm3 (3.8-10.6)
[2024-12-13 06:51] LABS: Anion Gap 7 (7-16); BUN/Creatinine Ratio 8 Ratio (12-20); Blood Urea Nitrogen 8 mg/dL (9-23); Calcium 9.5 mg/dL (8.3-10.6); Carbon Dioxide 32.3 mMol/L (20.0-31.0); Chloride 100 mMol/L (98-107); Creatinine (Component) 1.0 mg/dL (0.6-1.3); Estimated Creatinine Clearance 105.9 mL/min (>60); Glucose 123 mg/dL (74-106); Osmolality,Calculated 276 (275-295); Potassium 3.2 mMol/L (3.4-5.1); Sodium 139 mMol/L (136-145); eGFR > 60 See Note
[2024-12-13 08:00] VITALS: BP 135/84; PULSE 74; RESP 18; TEMP 36.4; O2SAT 95
[2024-12-13] MEDS: ENOXAPARIN SOD INJ 40 MG/0.4 ML SYRINGE SC (08:37)
--- NOTE | 2024-12-13 08:38 | CHAP ---
Patient was visited by a Spiritual Care Volunteer on 12/12/2024 between 0904 and 1100 and received comfort, encouragement and/or prayer.
--- NOTE | 2024-12-13 09:07 | PD.RESDS ---
Planned Discharge Date 12/13/24 DS: Providers Provider Date of admission: 12/11/24 22:06 Primary care physician: Sean Aguirre MD Admitting Provider: Apollo Gates MD Attending Provider on Admission: Apollo Gates MD Attending Provider on DC: RESIDENT Kasia Discharging Provider: RESIDENT Kasia DS: Diagnosis Problem List Completed Was Problem List Reviewed/Reconciled?: Yes Hospital Course Hospital Course Hospital course: Summary: Gera Jackson is a 54 y/o M with PMH of pre-diabetes presenting with a chief complaint of diarrhea with 5?10 episodes per day for the past 3 days. ER: Patient presented to the ED and was seen by ED provider at 16:11 on 12/11/24 for their presentation of diarrhea, flank pain, weakness, and fatigue ongoing for 3 days. ED account was as follows: 54yo male presenting with ongoing foul, watery diarrhea 5-10 episodes daily for the last 3 days. He has associated nausea, but no emesis. He does have generalized abdominal pain described as cramping and notes a low-grade fever. Please see PE findings. Lab markers remarkable for elevated WBC count 16.37, hemoconcentration with Hgb 17.6, normal platelets, and left shift without bandemia. Chemistries show mildly elevated blood sugar of 208 without ketosis, normal lipase. UA shows evidence of concentration. Patient placed on monitoring coordinator and IV was established. Patient hydrated to correct volume deficit and given IV narcotic analgesics/antiemetics with [id number] relief. Patient referred for CT abdomen pelvis, which demonstrated mild diffuse colitis. Empiric antibiotics initiated. Patient remained hemodynamically stable without signs of sepsis. Hospitalist consulted and agrees to admit the patient for bowel rest, IV antibiotic therapy, and pain control. Dx: acute colitis. Hospital: During patient's hospital course, the main medical diagnoses addressed was acute, non-bloody diarrhea. In terms of this diagnosis, patient was started on an antibiotic regimen consisting of IV Flagyl 500 mg q8HR and IV Levaquin 750 mg qD, given IV fluids (LR @ 60 mL/hr), and put on a clear liquid diet. Diagnostic work-up ordered included: -Stool culture, Giardia, norovirus -Stool calprotectin -Stool Campylobacter, E. coli Shiga Tox, Salmonella, Shigella PCR Patient began to look better after just 1 day of antibiotics and supportive treatment with less episodes of diarrhea and abdominal pain and a significant WBC downtrend by day 2 from 16.7 to 9.1. Day 3 confirmed that patient was positive for Campylobacter jejuni and, due to his stability and marked improvement, patient was discharged with ciprofloxacin to take in the outpatient setting. Patient is safe to discharge to home. Further discharge instructions below. #Acute diarrhea, non-bloody, likely infectious etiology #Hypomagnesemia Status at Discharge Cognitive/Behavioral Status at Discharge: stable Functional Status at Discharge: independent ambulation Overall Status at Discharge: patient is back to baseline Total Time Spent Providing and/or Coordinating Discharge Services: at least 30 minutes of care and coordination Status at Discharge Cognitive/behavioral status at discharge: stable Functional status at discharge: independent ambulation Overall status at discharge: patient is back to baseline Time Spent with Patient Time attestation: Total time spent providing and/or coordinating discharge services: Time spent: Greater than 30 minutes Exam Vital Signs Temp Pulse Resp BP Pulse Ox O2 Del Method 97.5 F 90 18 142/86 H 94 L Room Air 12/13/24 04:00 12/13/24 04:00 12/13/24 04:00 12/13/24 04:00 12/13/24 04:00 12/13/24 04:00 Narrative Exam Physical Exam: General: A/O x3, no acute distress, well-nourished, well-developed. Skin: Warm, dry, intact, no obvious rash. Head: Normocephalic, atraumatic. Eyes: PERRL, EOMI. Anicteric, vision grossly intact. Ears: No ear pain, no ear discharge, Hearing grossly intact. Nose: No nasal discharge. Mouth/Throat: Oral mucosa moist. No obvious lesions in oropharynx. Neck: Neck supple, non-tender, no cervical lymphadenopathy. Cardiovascular: Regular rate and rhythm, no murmur, no JVD or carotid bruits. +S1/S2. Respiratory: Bilateral lungs are clear to auscultation and percussion, respirations unlabored, no crackles, no wheezing. No accessory muscle use. Gastrointestinal: non tender, Soft, non-distended, no palpable masses. No guarding or rebound tenderness. Peristalsis present. Extremities: Symmetrical, no significant deformities. No edema, no cyanosis, no clubbing. 2+ radial pulse bilaterally, 2+ posterior tibial pulse bilaterally. Neuro: No focal deficits observed. Conversant, moving all extremities. No overt cerebellar signs/incoordination. Psychiatric: Cooperative, appropriate affect. Discharge Plan Plan Patient Disposition: HOME (Self Care) Prescriptions/Referrals Prescriptions/Med Rec: New ciprofloxacin HCl [Cipro] 500 mg tablet 500 mg PO Q12H Qty: 10 0RF Rx Instructions: administer dose 2 hrs before/6 hrs after dairy products/calcium/zinc/iron-containing products Referrals: Sean Aguirre MD [Primary Care Provider] - Patient/Caregiver Discharge Instructions Discharge Activity: activity as tolerated Education Materials: Understanding Colitis Print Language: Vietnamese Activity Restrictions/Additional Instructions: f/u with dr. aguirre in 1-2 weeks Stand Alone Forms: Abbie Award Info., Patient Portal Info Letter, Work/Release Restrictions Discharge Order Discharge Orders: Discharge (Routine); Ordered 12/13/24 Ordered By: Sean Aguirre Quality Discharge Quality Measures VTE prophylaxis MD Attestestation MD Attestation Patient seen and examined with resident physician Dr. Oneil. Note reviewed, agree with findings and recommendations. Patient with a Campylobacter gastroenteritis. Will discharge home on Cipro. Doing much better.
[2024-12-13 12:00] VITALS: BP 143/90; PULSE 72; RESP 19; TEMP 36.6; O2SAT 97
[2024-12-13 13:23] LABS: Glucose Estimated Average 160 mg/dL (80-131); Hemoglobin A1C 7.2 % Hgb (4.8-6.0)
[2024-12-13 13:43] LABS: Cardiac Risk Estimate 5.9 RATIO (4.0-6.7); Cholesterol 176 mg/dL (132-200); HDL Cholesterol 30 mg/dL (40-60); LDL Cholesterol,Calculated 111 mg/dL (0-130); Triglycerides 176 mg/dL (30-150)
[2024-12-15 06:45] LABS: Giardia Result NOT DETECTED; Norovirus, EIA (Stool)* NOT DETECTED
[2024-12-18 06:51] LABS: Calprotectin, Stool* 1110 mcg/g
== END 2024-12-13 13:34 | disposition home or self-care (01) ==
LOC: SERX 21:42 → SERHOLD 22:48 → S3NX 23:56
PROVIDERS: Nurse Practitioner Family; Admitting Provider Internal Medicine; Emergency Provider Emergency Medicine; PCP Internal Medicine; Visit Provider Internal Medicine
DX: K52.9 Noninfective gastroenteritis and colitis, unspecified (principal); E83.42 Hypomagnesemia
CPT/HCPCS: 36415; 74176; 80048; 80053; 80061; 81001; 83036; 83690; 83735; 83993; 84100; 84443; 85025; 85610; 85730; 87015; 87045; 87046; 87329; 87400; 87449; 87811; 87899; 96361; 96365; 96366; 96372; 96375; 99284; G0378; J1650; J1956; J2270; J3475; J3490; J7120; J1836